=== PATIENT | female | born 1965 | race African-American/Black ===

== ENCOUNTER 2021-10-22 07:41 | Day surgery (SDC) | payer BC, OTHER ==
[2021-10-18 11:09] VITALS: BMI 32.4
[2021-10-22 09:26] VITALS: TEMP 97.4
[2021-10-22 09:27] VITALS: BP 111/52; PULSE 55
[2021-10-22 09:29] VITALS: RESP 18
[2021-10-22] MEDS ORDERED: PROPOFOL 80 ML ONE (09:34)
== END 2021-10-22 09:29 | disposition home or self-care (01) ==
LOC: FASU-ENDO 07:41
PROVIDERS: ATTEND Internal Medicine Gastroenterology
PROC: 0DBL8ZX Excision of Transverse Colon, Via Natural or Artificial Opening Endoscopic, Diagnostic (ICD-10-PCS; principal; 2021-10-22 08:39)
DX: Z12.11 Encounter for screening for malignant neoplasm of colon (principal); Z86.010 Personal history of colon polyps; Z83.71 Family history of colonic polyps; K63.5 Polyp of colon
CPT/HCPCS: 88305-TC